=== PATIENT | female | born 1985 | race Two or more races ===

== ENCOUNTER 2024-10-22 09:30 | Outpatient (RCR) | payer MEDICAID, SELFPAY ==
--- NOTE | 2024-10-22 10:00 | XR_ITS ---
Examination: Nuclear medicine gastric emptying study Exam date and time: October 22, 2024 1115 hours INDICATIONS: Abdominal pain with nausea vomiting diarrhea 5 years bloating after meals TECHNIQUE AND FINDINGS: Oral administration 2.2 mCi technetium 99m sulfur colloid Retention of gastric activity at 120 minutes is 14.5% IMPRESSION: Normal gastric emptying study
== END 2024-10-27 23:59 | disposition home or self-care (01) ==
LOC: SNUC 09:30
PROVIDERS: PCP Family Medicine; Referring Provider Internal Medicine Gastroenterology; Visit Provider Internal Medicine Gastroenterology
DX: R10.9 Unspecified abdominal pain (principal); R13.10 Dysphagia, unspecified
CPT/HCPCS: 78264; A9541

== ENCOUNTER → 2024-11-14 | Outpatient (CLI) | payer MEDICAID, SELFPAY ==
--- NOTE | 2024-11-14 10:00 | XR_ITS ---
EXAMINATION: XR esophogram standard HISTORY: 39-year-old with dysphagia symptoms localized to right-sided throat. Right ear clicking sound with swallowing. COMPARISON: 10/11/2023, esophagram. TECHNIQUE: [employer] radiograph of the chest and lateral neck were followed by multiple fluoroscopic images of the neck, chest, and abdomen during and after the uneventful administration of thin oral barium. FLUOROSCOPY TIME: 1.1 min AIR KERMA: 112 mGy FINDINGS: Clear lungs. No pneumothorax. No pleural effusion. No prevertebral soft tissue swelling. No vallecular pooling. No piriform sinus pooling. No penetration. No aspiration. Primary and secondary contractions intact. No internal or external mass effect. No stricture. Rapid passage of contrast through the gastroesophageal junction. Ligament of Treitz is in anatomic position. No spontaneous or inducible gastroesophageal reflux. No hiatal hernia. IMPRESSION: Normal esophagram.
--- NOTE | 2024-11-14 10:00 | XR_ITS ---
Examination: Complete OB ultrasound, less than 14 weeks, transabdominal Date and time of exam: November 13, 2024 at 1551 hrs. Indications: History miscarriage Technique: Obstetrical ultrasound images less than 14 weeks performed via transabdominal imaging Findings: A normal shaped single intrauterine gestation is present in the uterus. CRL 0.9 cm corresponds to 7 week 0 day gestational age Cardiac motion 132 BPM Adjacent subchorionic hemorrhage 16 x 14 x 11 mm Ultrasonographic survey of visible and placental structures unremarkable. Amniotic fluid volume appears appropriate for this estimated gestational age. Right ovary 5.8 cm arterial flow 3.3 cm cyst Left ovary 3.6 cm arterial flow Impression: Viable intrauterine gestation 7 weeks 0 days Recommend short-term follow-up study given the subchorionic hemorrhage.
== END | disposition home or self-care (01) ==
LOC: SDIM 09:33
PROVIDERS: Referring Provider Internal Medicine Gastroenterology; Visit Provider Internal Medicine Gastroenterology
DX: R13.10 Dysphagia, unspecified (principal); R10.9 Unspecified abdominal pain
CPT/HCPCS: 74220; Z7610